=== PATIENT | male | born 1955 | race Caucasian/White ===

== ENCOUNTER → 2022-06-02 | Outpatient (CLI) | payer MEDICARE ==
[~2022-06-02] MED LIST: ibuprofen
== END ==
LOC: M RAD 11:30
PROVIDERS: ATTEND Family Medicine
DX: J15.9 Unspecified bacterial pneumonia (principal); R05.1 Acute cough

== ENCOUNTER → 2022-06-30 | Outpatient (CLI) | payer MEDICARE | LOC: M WUC 11:38 | PROVIDERS: ATTEND Internal Medicine | DX: J15.9 Unspecified bacterial pneumonia (principal) ==

== ENCOUNTER → 2025-08-03 | Outpatient (REF) | payer MEDICARE | LOC: M SFHCDERM 17:28 | PROVIDERS: ATTEND Physician Assistant | DX: D48.9 Neoplasm of uncertain behavior, unspecified (principal) ==

== ENCOUNTER 2025-09-07 11:19 | Day surgery (SDC) | payer MEDICARE ==
[~2025-09-07] VITALS: Ht 177.8 cm; Wt 75.7 kg
[2025-09-07] MEDS ORDERED: GLYCOPYRROLATE INJ 0.2 MG/ML 2 ML VIAL As Ordered ONE (11:20)
[2025-09-07] MEDS ORDERED: LIDOCAINE 2% 100 MG/5 ML SDV (FOR ANES.) As Ordered ONE (11:20)
[2025-09-07 13:01] VITALS: TEMP 97.1
[2025-09-07 13:30] VITALS: BP 141/80; O2SAT 98
== END 2025-09-07 13:39 | disposition home or self-care (01) ==
LOC: M OPP 11:19
PROVIDERS: ATTEND Surgery
DX: Z12.11 Encounter for screening for malignant neoplasm of colon (principal); K64.8 Other hemorrhoids
CPT/HCPCS: G0121; J1596